=== PATIENT | female | born 1985 ===

== ENCOUNTER 2022-01-25 20:40 | Outpatient (CLI) | payer SELFPAY | END 2022-01-25 20:41 | disposition EMS.NT | LOC: EMS 20:40 | DX: S60.512A Abrasion of left hand, initial encounter (principal); S60.511A Abrasion of right hand, initial encounter; S80.211A Abrasion, right knee, initial encounter; W18.39XA Other fall on same level, initial encounter; Y93.K1 Activity, walking an animal; Y92.481 Parking lot as the place of occurrence of the external cause ==